=== PATIENT | female | born 1990 | race Hispanic/Latino ===

== ENCOUNTER 2021-12-13 21:47 | Emergency (ER) | payer OTHER ==
[~2021-12-13] VITALS: Ht 154.9 cm; Wt 55.3 kg
== END 2021-12-13 23:10 | disposition home or self-care (01) ==
LOC: ER 21:58
DX: S06.0X0A Concussion without loss of consciousness, initial encounter (principal); W22.09XA Striking against other stationary object, initial encounter; Y92.89 Other specified places as the place of occurrence of the external cause
CPT/HCPCS: 99282

== ENCOUNTER 2021-12-24 12:59 | Emergency (ER) | payer SELFPAY ==
[~2021-12-24] VITALS: Ht 154.9 cm; Wt 55.3 kg
[2021-12-24] MEDS ORDERED: KETOROLAC TROMETHAMINE 30 MG/ML VIAL IV STA (13:40)
[2021-12-24] MEDS ORDERED: DIPHENHYDRAMINE HCL INJ 50 MG/ML VIAL IV ONE (13:45)
[2021-12-24] MEDS ORDERED: SODIUM CHLORIDE 0.9% 500ML 500 ML IV ONE (13:45)
[2021-12-24] MEDS ORDERED: METOCLOPRAMIDE HCL 10 MG/2ML VIAL IV ONE (13:45)
== END 2021-12-24 18:07 | disposition home or self-care (01) ==
LOC: ER 13:38
DX: R51.9 Headache, unspecified (principal)
CPT/HCPCS: 70450; 99284; J1200; J1885; J2765; J7040